=== PATIENT | female | born 2000 | race Caucasian/White ===

== ENCOUNTER 2025-04-27 13:24 | Emergency (ER) | payer SELFPAY ==
[2025-04-27 13:29] VITALS: BP 159/100
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
[2025-04-27] MEDS: DECADRON 10 MG PO (15:16)
[2025-04-27] MEDS: VALIUM 5 MG PO (15:16)
[2025-04-27] MEDS: TORADOL 30 MG IM (15:16)
== END 2025-04-27 15:36 | disposition home or self-care (01) ==
LOC: EMR 13:24
PROVIDERS: EMERGENCY PHYSICIAN Emergency Medicine; FAMILY PHYSICIAN Family Medicine
DX: S39.012A Strain of muscle, fascia and tendon of lower back, initial encounter (principal); M62.830 Muscle spasm of back; V47.3XXA Unspecified car occupant injured in collision with fixed or stationary object in nontraffic accident, initial encounter; Y92.410 Unspecified street and highway as the place of occurrence of the external cause; R03.0 Elevated blood-pressure reading, without diagnosis of hypertension; E66.9 Obesity, unspecified
CPT/HCPCS: 99284; 96372